=== PATIENT | female | born 1965 | race American Indian/Alaskan Native ===

== ENCOUNTER 2019-02-03 07:50 | Day surgery (SDC) | payer MEDICAID ==
[~2019-02-03 07:50] MED LIST: IOHEXOL 300 MG/ML 50ML IV ONE; LACTATED RINGERS 1,000 ML IV SCH; MIDAZOLAM 2 MG/2 ML INJ IV NR; WATER FOR IRRIG STERILE 2000 ML IR ONE
[2019-02-03] MEDS ORDERED: fentaNYL 100 MCG/2 ML INJ IV PRN (08:25)
[2019-02-03] MEDS ORDERED: ONDANSETRON 4 MG/2 ML INJ IV PRN (08:25)
--- NOTE | 2019-02-03 08:25 | Anesthesia Consultation ---
Anesthesia Consult and Med Hx Date of service: 02/03/19 - Airway Anesthetic Teeth Evaluation: Partials ROM Head & Neck: Adequate Mental/Hyoid Distance: Adequate Mallampati Class: Class II Intubation Access Assessment: Good - Pulmonary Exam CTA: Yes - Cardiac Exam Cardiac Exam: RRR - Pre-Operative Health Status ASA Pre-Surgery Classification: ASA3 Proposed Anesthetic Plan: General (DM, HTN, Obesity for GA) - Pulmonary Hx Smoking: Yes (STOPPED X 20 YRS) Hx Sleep Apnea: No (ANOOP PRE SCREEN HIGH RISK) - Cardiovascular System Hx Hypertension: Yes (X 10 YRS) - Hematic Hx Anemia: Yes (RECENT) - Other Systems Hx Cancer: No
--- NOTE | 2019-02-03 08:25 | Anesthesia Day of Surgery ---
Anesthesia Day of Surgery - Day of Surgery Patient Examined: Yes Patient H&P Reviewed: Yes Patient is NPO: Yes
[2019-02-03] MEDS ORDERED: fentaNYL 100 MCG/2 ML INJ ONE (09:20)
[2019-02-03] MEDS ORDERED: PROPOFOL 200 MG/20 ML VIAL IV ONE (09:20)
[2019-02-03] MEDS ORDERED: LIDOCAINE MPF (2%) 20 MG/1 ML VIAL 5 ML ONE (09:20)
[2019-02-03 10:00] VITALS: BP 139/77
== END 2019-02-03 07:51 | disposition home or self-care (01) ==
LOC: OR 07:50
PROVIDERS: ATTEND Urology
DX: N20.0 Calculus of kidney (principal); G43.909 Migraine, unspecified, not intractable, without status migrainosus; I10 Essential (primary) hypertension; D64.9 Anemia, unspecified; F32.9 Major depressive disorder, single episode, unspecified; Z53.8 Procedure and treatment not carried out for other reasons; Z91.040 Latex allergy status; Z88.5 Allergy status to narcotic agent; Z87.891 Personal history of nicotine dependence; Z79.899 Other long term (current) drug therapy; Z79.84 Long term (current) use of oral hypoglycemic drugs; Z87.440 Personal history of urinary (tract) infections
CPT/HCPCS: 82803; 82962; A4217; J2704; J3010

== ENCOUNTER 2019-02-23 15:38 | Inpatient (IN) | payer MEDICAID ==
[2019-02-23] MEDS ORDERED: ACETAMINOPHEN 325 MG TAB PO PRN (22:31)
[2019-02-23] MEDS ORDERED: ONDANSETRON 4 MG/2 ML INJ IV PRN (22:31)
[2019-02-23] MEDS ORDERED: DEXTROSE 50% IN WATER (25GM) 50 ML SYRINGE IV PRN (22:38)
[2019-02-23] MEDS ORDERED: INSULIN LISPRO 100 UNIT/ML SUB-Q SCH (23:15)
--- NOTE | 2019-02-23 23:16 | History and Physical Report ---
History of Present Illness Date of examination: 02/23/19 Date of admission: 02/23/19 22:31 Chief complaint: " My potassium is low" History of present illness: Patient is a 53 year old female with a past medical history of NIDDM, hypertension, Iron deficiency anemia and bilateral Kidney stones who presented to [facility] 02/23/2019 morning for pre op labs for scheduled surgery of shockwave lithotripsy and bilateral ureteroscopy. Patient states she received a call while at home that potassium was low and she needed to be admitted for further evaluation and management of hypokalemia. She is followed by ;urologist, Dr. Camara (at [facility]). She denies chills, fevers, n/v/chest pains or sob. Past History Past Medical History: other (As noted in HPI) Past Surgical History: Other (Lithotripsy) Social history: Family history: CAD, cancer, diabetes Medications and Allergies Allergies Allergy/AdvReac Type Severity Reaction Status Date / Time latex Allergy Rash , Verified 02/17/19 14:18 ITCHING morphine Allergy ELEVATED Verified 02/17/19 14:18 HEART RATE Home Medications Medication Instructions Recorded Confirmed Last Taken Type HYDROcodone/APAP 5-325 [[place] 1 each PO Q4HR PRN 11/29/18 02/23/19 Unknown History 5/325] Lisinopril/Hydrochlorothiazide 1 each PO DAILY 11/29/18 02/23/19 Unknown History [Zestoretic 10-12.5 mg Tablet] metFORMIN [Glucophage] 500 mg PO BID 11/29/18 02/23/19 Unknown History amLODIPine [Norvasc] 5 mg PO DAILY 02/17/19 02/23/19 Unknown History Potassium Chloride 20 meq PO 4XD 02/23/19 02/23/19 Unknown History Active Meds: Active Medications Acetaminophen (Tylenol) 650 mg PO Q4H PRN PRN Reason: Pain MILD(1-3)/Fever >100.5/ROGERS Dextrose (D50w (25gm) Syringe) 50 ml IV Q30MIN PRN; Protocol PRN Reason: Hypoglycemia Insulin Human Lispro (Humalog) 0 unit SUB-Q ACHS KEVIN; Protocol Ondansetron HCl (Zofran) 4 mg IV Q8H PRN PRN Reason: Nausea And Vomiting Sodium Chloride (Sodium Chloride Flush Syringe 10 Ml) 10 ml IV BID KEVIN Review of Systems All systems: negative Constitutional: no weakness, no malaise, no lethargy Ears, nose, mouth and throat: no mouth pain, no sore throat, no swelling in mouth Breasts: no pain, no skin changes, no Cardiovascular: high blood pressure, no chest pain, no shortness of breath Respiratory: no cough, no shortness of breath, no pain, no home oxygen Gastrointestinal: no nausea, no vomiting, no diarrhea Genitourinary Female: no abnormal vaginal bleeding, no vaginal dryness, no hot flashes Rectal: no hemorrhoids, no discharge Musculoskeletal: no muscle cramps, no atrophy, no limitation of motion Integumentary: no depigmentation, no brittle nails, no hirsutism Neurological: no head injury, no tingling, no aphasia, no change in mentation Psychiatric: no hopelessness, no difficulties concentrating Endocrine: high blood sugars Allergic/Immunologic: no anaphylaxis, no angioedema Exam - Physical Exam Narrative exam: General appearance: Present: pleasant woman, no acute distress - EENT Eyes: Present: PERRL ENT: hearing intact, clear oral mucosa - Neck Neck: Present: supple, normal ROM - Respiratory Respiratory effort: normal Respiratory: bilateral: CTA - Cardiovascular Heart Sounds: Present: S1 & S2. Absent: rub, click - Extremities Extremities: pulses symmetrical, No edema Peripheral Pulses: within normal limits - Abdominal General gastrointestinal: Present: soft, non-tender, non-distended, normal bowel sounds Female genitourinary: Present: normal - Integumentary Integumentary: Present: clear, warm, dry - Musculoskeletal Musculoskeletal: strength equal bilaterally - Psychiatric Psychiatric: appropriate mood/affect, intact judgment & insight - Neurologic Neurologic: CNII-XII intact, moves all extremities, - Constitutional Vitals: Temp Pulse Resp BP Pulse Ox 97.9 F 80 16 141/75 97 02/23/19 20:49 02/23/19 20:49 02/23/19 20:49 02/23/19 20:49 02/23/19 20:49 Results - Labs CBC & Chem 7: 02/24/19 00:11 02/24/19 16:18 Labs: Laboratory Last Values POC Glucose 415 (70-105) H 02/23/19 22:22 Assessment and Plan Assessment and plan: Hypokalemia -monitor labs -Replete K Nephrolithiasis -Scheduled surgery -Pain management if needed Hypertension -Resume home meds once reconciled -Monitor q shift -Type 2 diabetes mellitus; -Accu-Cheks -sliding scale coverage DVT prophylaxis -SCD Bilateral VTE prophylaxis?: Mechanical Reason for no VTE Prophylaxis: Surgical contraindication Plan of care discussed with patient/family: Yes
[2019-02-23] MEDS ORDERED: SODIUM CHLORIDE 0.9% 500 ML 500 ML IV ONE (23:19)
[2019-02-23 23:32] LABS: BUN/Creatinine Ratio 18; Blood Urea Nitrogen 18 mg/dL (7-17); Hemolysis Index 3
[2019-02-24] MEDS ORDERED: INSULIN LISPRO 100 UNIT/ML SUB-Q ONE (00:11)
[2019-02-24 00:22] LABS: Basophils % (Auto) 0.5 % (0.0-1.8); Eosinophils # (Auto) 0.1 K/mm3 (0.0-0.4); Eosinophils % (Auto) 1.4 % (0.0-4.3); Hematocrit 34.6 % (30.3-42.9); Hemoglobin 11.2 gm/dl (10.1-14.3); Lymphocytes # (Auto) 1.1 K/mm3 (1.2-5.4); Lymphocytes % (Auto) 21.8 % (13.4-35.0); Mean Corpuscular HGB Conc 32 % (30-34); Mean Corpuscular Volume 75 fl (79-97); Monocytes # (Auto) 0.5 K/mm3 (0.0-0.8); Monocytes % (Auto) 9.4 % (0.0-7.3); Platelet Count 328 K/mm3 (140-440); Red Cell Distribution Width 14.4 % (13.2-15.2)
[2019-02-24] MEDS ORDERED: POTASSIUM CHLORIDE ER 20 MEQ TAB PO ONE ×2 (00:27→19:07)
[2019-02-24] MEDS: POTASSIUM CHLORIDE 10 MEQ 10 MEQ/100 ML BAG IV SCH ×7 (00:37→21:23)
[2019-02-24 00:40] LABS: INR 1.04 (0.87-1.13); Partial Thromboplastin Time 31.2 Sec. (24.2-36.6)
[2019-02-24] MEDS: SODIUM CHLORIDE 0.9% 1000 ML 1,000 ML IV SCH ×2 (00:50→13:15)
[2019-02-24] MEDS: INSULIN LISPRO 100 UNIT/ML SUB-Q SCH ×2 (06:07→12:32)
[2019-02-24 08:34] LABS: BUN/Creatinine Ratio 18; Blood Urea Nitrogen 14 mg/dL (7-17); Calcium 9.6 mg/dL (8.4-10.2); Hemolysis Index 68
--- NOTE | 2019-02-24 11:46 | XRay Report ---
ABDOMEN 1 VIEW(S) INDICATION / CLINICAL INFORMATION: pre surg. COMPARISON: None available. FINDINGS: TUBES / LINES: Bilateral ureteral stents are in position. BOWEL GAS PATTERN: No significant abnormality. FREE AIR / EXTRALUMINAL GAS: None seen. ADDITIONAL FINDINGS: An approximate 1.1 cm calcification overlies the inferior pole of the left kidne y consistent with a renal stone. No other pathologic calcifications are detected on x-ray. IMPRESSION: Left nephrolithiasis. Signer Name: Jez Chacko Jr, MD Signed: 02/24/2019 11:42 AM Workstation Name: [id number]
--- NOTE | 2019-02-24 13:08 | Anesthesia Consultation ---
Anesthesia Consult and Med Hx Date of service: 02/24/19 - Airway Anesthetic Teeth Evaluation: Dentures (upper) ROM Head & Neck: Adequate Mental/Hyoid Distance: Adequate Mallampati Class: Class III Intubation Access Assessment: Possibly Difficult - Pulmonary Exam CTA: Yes - Cardiac Exam Cardiac Exam: RRR - Pre-Operative Health Status ASA Pre-Surgery Classification: ASA3 Proposed Anesthetic Plan: General - Pulmonary Hx Smoking: Yes (STOPPED X 20 YRS) Hx Respiratory Symptoms: No Hx Sleep Apnea: No (ANOOP PRE SCREEN HIGH RISK) - Cardiovascular System Hx Hypertension: Yes Hx Heart Attack/AMI: No - Central Nervous System CVA: No - Gastrointestinal Hx Gastroesophageal Reflux Disease: No - Endocrine Hx Renal Disease: No Hx Liver Disease: No Hx Non-Insulin Dependent Diabetes: Yes (hyperglycemic this admission) Hx Thyroid Disease: No - Hematic Hx Anemia: Yes - Other Systems Hx Obesity: Yes (BMI 41) - Additional Comments Anesthesia Medical History Comments: No hx anesthetic complications. Currently admitted for hypokalemia evaluation. Received K supplementation overnight.
--- NOTE | 2019-02-24 13:08 | Anesthesia Day of Surgery ---
Anesthesia Day of Surgery - Day of Surgery Patient Examined: Yes Patient H&P Reviewed: Yes Patient is NPO: Yes
[2019-02-24] MEDS ORDERED: fentaNYL 100 MCG/2 ML INJ IV PRN (13:30)
[2019-02-24] MEDS ORDERED: INSULIN REGULAR, HUMAN 100 UNITS/1 ML SUB-Q SCH (13:30)
[2019-02-24] MEDS ORDERED: cefTRIAXone/NS 1 GM/50 ML 1 GM/50 ML BAG IV NR (13:30)
[2019-02-24] MEDS ORDERED: HYDROmorphone 1 MG/1 ML INJ ONE (13:48)
[2019-02-24] MEDS ORDERED: PROPOFOL 200 MG/20 ML VIAL IV ONE (13:48)
[2019-02-24] MEDS ORDERED: LIDOCAINE MPF (2%) 20 MG/1 ML VIAL 5 ML ONE (13:48)
[2019-02-24] MEDS ORDERED: ONDANSETRON 4 MG/2 ML INJ ONE (15:42)
--- NOTE | 2019-02-24 15:54 | Post Operative Note ---
Date of procedure: 02/24/19 Pre-op diagnosis: stones retained stent Post-op diagnosis: same Findings: severe calcifies stent stones Procedure: cysto ureteroscopy laser Anesthesia: GETA Surgeon: KRYSTYNA KAUR Estimated blood loss: minimal Pathology: none Condition: stable Disposition: PACU
[2019-02-24] MEDS ORDERED: WATER FOR IRRIG STERILE 2000 ML IR ONE (15:57)
[2019-02-24] MEDS ORDERED: oxyCODONE /ACETAMINOPHEN 5-325MG TAB PO PRN (15:59)
[2019-02-24] MEDS ORDERED: ZOLPIDEM 5 MG TAB PO PRN (15:59)
[2019-02-24] MEDS ORDERED: LACTATED RINGERS 1,000 ML IV SCH (16:00)
[2019-02-24 16:45] LABS: Alanine Aminotransferase 16 units/L (7-56); Albumin 3.6 g/dL (3.9-5); BUN/Creatinine Ratio 15; Blood Urea Nitrogen 12 mg/dL (7-17); Hemolysis Index 6
--- NOTE | 2019-02-24 17:07 | Fluoroscopy Report ---
7 fluoroscopic images submitted Indication: Intraoperative localization Impression: 7 images of the abdomen were submitted for documentation purposes with radiology involve ment. Right-sided retrograde pyelogram was performed with right-sided stent removal and opened and t he catheter placement. 8 mL of Omnipaque 300 was utilized for this exam. Please refer to the operativ e note for complete details. Fluoroscopic time: 3 minutes Signer Name: Allan Escobar MD Signed: 02/24/2019 5:02 PM Workstation Name: [id number]
--- NOTE | 2019-02-24 17:47 | Post Anesthesia Evaluation ---
- Post Anesthesia Evaluation Patient Participated: Yes Airway Patent: Yes Stable Respiratory Function: Yes Nausea/Vomiting: No Temp > 96.8F: Yes Pain Manageable: Yes Adequeate Hydration: Yes Anesthesia Complications: No Other Comments: Post op chem showed hypokalemia. IV potassium started prior to transfer back to floor.
[2019-02-24] MEDS ORDERED: MAGNESIUM SULFATE 1 GM in SODIUM CHLORIDE 0.9% 50 ML IV ONE (19:07)
--- NOTE | 2019-02-24 19:10 | Progress Note ---
Assessment and Plan Assessment and plan: Patient is a 53 year old female with a past medical history of NIDDM, hypertension, Iron deficiency anemia and bilateral Kidney stones who presented to [facility] 02/23/2019 morning for pre op labs for scheduled surgery of shockwave lithotripsy and bilateral ureteroscopy. Patient states she received a call whil e at home that potassium was low and she needed to be admitted for further evaluation and management of hypokalemia. She is followed by ;urologist, Dr. Camara (at [facility]). She denies chills, fevers, n/v/chest pains or sob. Nephrolithasis severe calcifies stent stones s/p cysto ureteroscopy laser Persistence Hypokalemia -monitor labs -Check Magnesium -?RTA, may need outpatient Nephrology follow up -Replete K hypertension -Resume home meds once reconciled -Monitor q shift -Type 2 diabetes mellitus; -Accu-Cheks -sliding scale coverage DVT prophylaxis -SCD Bilateral Plan discussed with the patient History Interval history: Patient seen and examined, cystoscope today Hospitalist Physical - Physical exam Narrative exam: General appearance: Present: pleasant woman, no acute distress, lying comfortably - EENT Eyes: Present: PERRL ENT: hearing intact, clear oral mucosa - Neck Neck: Present: supple, normal ROM - Respiratory Respiratory effort: normal Respiratory: bilateral: CTA - Cardiovascular Heart Sounds: Present: S1 & S2. Absent: rub, click - Extremities Extremities: pulses symmetrical, No edema Peripheral Pulses: within normal limits - Abdominal General gastrointestinal: Present: soft, non-tender, non-distended, normal bowel sounds Christianson in place - Integumentary Integumentary: Present: clear, warm, dry, drains in place, - Musculoskeletal Musculoskeletal: strength equal bilaterally - Psychiatric Psychiatric: appropriate mood/affect, intact judgment & insight - Neurologic Neurologic: CNII-XII intact, moves all extremities, - Constitutional Vitals: Temp Pulse Resp BP Pulse Ox 97.3 F L 69 19 146/87 96 02/24/19 16:50 02/24/19 17:20 02/24/19 17:20 02/24/19 17:20 02/24/19 17:20 Results - Labs CBC & Chem 7: 02/24/19 00:11 02/24/19 16:18 Labs: Laboratory Last Values WBC 5.2 K/mm3 (4.5-11.0) 02/24/19 00:11 RBC 4.60 M/mm3 (3.65-5.03) 02/24/19 00:11 Hgb 11.2 gm/dl (10.1-14.3) 02/24/19 00:11 Hct 34.6 % (30.3-42.9) 02/24/19 00:11 MCV 75 fl (79-97) L 02/24/19 00:11 MCH 24 pg (28-32) L 02/24/19 00:11 MCHC 32 % (30-34) 02/24/19 00:11 RDW 14.4 % (13.2-15.2) 02/24/19 00:11 Plt Count 328 K/mm3 (140-440) 02/24/19 00:11 Lymph % (Auto) 21.8 % (13.4-35.0) 02/24/19 00:11 [place] % (Auto) 9.4 % (0.0-7.3) H 02/24/19 00:11 Eos % (Auto) 1.4 % (0.0-4.3) 02/24/19 00:11 Baso % (Auto) 0.5 % (0.0-1.8) 02/24/19 00:11 Lymph # 1.1 K/mm3 (1.2-5.4) L 02/24/19 00:11 [place] # 0.5 K/mm3 (0.0-0.8) 02/24/19 00:11 Eos # 0.1 K/mm3 (0.0-0.4) 02/24/19 00:11 Baso # 0.0 K/mm3 (0.0-0.1) 02/24/19 00:11 Seg Neutrophils % 66.9 % (40.0-70.0) 02/24/19 00:11 Seg Neutrophils # 3.5 K/mm3 (1.8-7.7) 02/24/19 00:11 PT 13.7 Sec. (12.2-14.9) 02/24/19 00:11 INR 1.04 (0.87-1.13) 02/24/19 00:11 APTT 31.2 Sec. (24.2-36.6) 02/24/19 00:11 Sodium 144 mmol/L (137-145) 02/24/19 16:18 Potassium 2.8 mmol/L (3.6-5.0) L* 02/24/19 16:18 Chloride 106.1 mmol/L (98-107) 02/24/19 16:18 Carbon Dioxide 22 mmol/L (22-30) 02/24/19 16:18 Anion Gap 19 mmol/L 02/24/19 16:18 BUN 12 mg/dL (7-17) 02/24/19 16:18 Creatinine 0.8 mg/dL (0.7-1.2) 02/24/19 16:18 Estimated GFR > 60 ml/min 02/24/19 16:18 BUN/Creatinine Ratio 15 % 02/24/19 16:18 Glucose 185 mg/dL (65-100) H 02/24/19 16:18 POC Glucose 204 (70-105) H 02/24/19 14:01 Calcium 9.0 mg/dL (8.4-10.2) 02/24/19 16:18 Magnesium 1.70 mg/dL (1.7-2.3) 02/24/19 00:11 Total Bilirubin 0.50 mg/dL (0.1-1.2) 02/24/19 16:18 AST 18 units/L (5-40) 02/24/19 16:18 ALT 16 units/L (7-56) 02/24/19 16:18 Alkaline Phosphatase 65 units/L (35-129) 02/24/19 16:18 Total Protein 7.2 g/dL (6.3-8.2) 02/24/19 16:18 Albumin 3.6 g/dL (3.9-5) L 02/24/19 16:18 Albumin/Globulin Ratio 1.0 % 02/24/19 16:18 Active Medications - Current Medications Current Medications: Generic Name Dose Route Start Last Admin Trade Name Freq PRN Reason Stop Dose Admin Acetaminophen 650 mg 02/23/19 22:31 Tylenol PO Q4H PRN Pain MILD(1-3)/Fever >100.5/ROGERS Dextrose 50 ml 02/23/19 22:38 D50w (25gm) Syringe IV Q30MIN PRN Hypoglycemia Protocol Sodium Chloride 1,000 mls @ 125 mls/hr 02/23/19 23:30 02/24/19 13:15 Nacl 0.9% 1000 Ml IV 125 mls/hr DIRECT KEVIN Administration Cefazolin Sodium 1 gm in 50 mls @ 100 mls/hr 02/24/19 20:00 Ancef/Ns 1 Gm/50 Ml IV 02/25/19 01:59 TID NR Protocol Lactated Ringer's 1,000 mls @ 100 mls/hr 02/24/19 16:00 Lactated Ringers IV DIRECT KEVIN Potassium Chloride 10 meq in 100 mls @ 100 mls/hr 02/24/19 18:00 02/24/19 18:50 Kcl 10meq/100ml IV 02/24/19 21:59 100 mls/hr Q1H KEVIN Administration Magnesium Sulfate 1 gm/ Sodium 52 mls @ 52 mls/hr 02/24/19 19:07 Chloride IV 02/24/19 20:06 ONCE ONE Insulin Human Lispro 0 unit 02/24/19 06:00 02/24/19 12:32 Humalog SUB-Q Not Given Q6HR [facility] Protocol Ondansetron HCl 4 mg 02/23/19 22:31 Zofran IV Q8H PRN Nausea And Vomiting Oxycodone/Acetaminophen 1 tab 02/24/19 15:59 Percocet 5/325 PO Q6H PRN Pain, Moderate (4-6) Potassium Chloride 40 meq 02/24/19 19:07 K-Dur PO 02/24/19 19:08 ONCE ONE Sodium Chloride 10 ml 02/23/19 23:00 02/24/19 10:49 Sodium Chloride Flush Syringe 10 Ml IV Not Given BID KEVIN Zolpidem Tartrate 5 mg 02/24/19 15:59 Ambien PO QHS PRN Sleep
[2019-02-24] MEDS ORDERED: ceFAZolin/NS 1 GM/50 ML 1 GM/50 ML BAG IV NR (20:00)
[2019-02-25] MEDS: POTASSIUM CHLORIDE 10 MEQ 10 MEQ/100 ML BAG IV SCH ×4 (00:18→13:40)
[2019-02-25] MEDS: INSULIN LISPRO 100 UNIT/ML SUB-Q SCH ×3 (00:27→12:30)
[2019-02-25 06:59] LABS: BUN/Creatinine Ratio 18; Blood Urea Nitrogen 14 mg/dL (7-17); Calcium 9.4 mg/dL (8.4-10.2); Hemolysis Index 35
--- NOTE | 2019-02-25 08:39 | Progress Note ---
Subjective Date of service: 02/25/19 Interval history: post op severe calcifies stent stones Procedure: cysto ureteroscopy laser 02-24-19 Surgeon: KRYSTYNA KAUR nurse at bedside cohen & ureteral catheter draining well informed pt with have bladder spasm, urine leakage (had signifcant swelling & stones internally) home with cohen & ureteral catheter consult visiting nurse f/u [address] Camara to remove catheters Objective - Constitutional Vitals: Vital Signs - 12hr 02/24/19 02/25/19 02/25/19 21:24 00:17 04:26 Temperature 98.2 F 98.6 F Pulse Rate 78 76 Respiratory 18 16 16 Rate Blood Pressure 131/68 143/77 O2 Sat by Pulse 95 96 Oximetry 02/25/19 07:31 Temperature 98.4 F Pulse Rate 75 Respiratory 18 Rate Blood Pressure 149/74 O2 Sat by Pulse 93 Oximetry - Labs CBC & Chem 7: 02/24/19 00:11 02/25/19 06:07 Labs: Abnormal lab results 02/24/19 02/24/19 02/24/19 Range/Units 12:06 13:03 14:01 Potassium (3.6-5.0) mmol/L Carbon Dioxide (22-30) mmol/L Glucose (65-100) mg/dL POC Glucose 221 H 237 H 204 H (70-105) Albumin (3.9-5) g/dL 02/24/19 02/24/19 02/25/19 Range/Units 16:10 16:18 00:25 Potassium 2.8 L* (3.6-5.0) mmol/L Carbon Dioxide (22-30) mmol/L Glucose 185 H (65-100) mg/dL POC Glucose 179 H 317 H (70-105) Albumin 3.6 L (3.9-5) g/dL 02/25/19 02/25/19 Range/Units 06:07 07:02 Potassium 3.3 L (3.6-5.0) mmol/L Carbon Dioxide 20 L (22-30) mmol/L Glucose 256 H (65-100) mg/dL POC Glucose 242 H (70-105) Albumin (3.9-5) g/dL Medications & Allergies - Medications Allergies/Adverse Reactions: Allergies latex Allergy (Verified 02/17/19 14:18) Rash , ITCHING morphine Allergy (Verified 02/17/19 14:18) ELEVATED HEART RATE Home Medications: Home Medications Medication Instructions Recorded Confirmed Last Taken Type HYDROcodone/APAP 5-325 [[place] 1 each PO Q4HR PRN 11/29/18 02/23/19 Unknown History 5/325] Lisinopril/Hydrochlorothiazide 1 each PO DAILY 11/29/18 02/23/19 Unknown History [Zestoretic 10-12.5 mg Tablet] metFORMIN [Glucophage] 500 mg PO BID 11/29/18 02/23/19 Unknown History amLODIPine [Norvasc] 5 mg PO DAILY 02/17/19 02/23/19 Unknown History Potassium Chloride 20 meq PO 4XD 02/23/19 02/23/19 Unknown History Active Medications: Generic Name Dose Route Start Last Admin Trade Name Freq PRN Reason Stop Dose Admin Acetaminophen 650 mg 02/23/19 22:31 Tylenol PO Q4H PRN Pain MILD(1-3)/Fever >100.5/ROGERS Dextrose 50 ml 02/23/19 22:38 D50w (25gm) Syringe IV Q30MIN PRN Hypoglycemia Protocol Sodium Chloride 1,000 mls @ 125 mls/hr 02/23/19 23:30 02/24/19 13:15 Nacl 0.9% 1000 Ml IV 125 mls/hr DIRECT KEVIN Administration Lactated Ringer's 1,000 mls @ 100 mls/hr 02/24/19 16:00 02/25/19 00:27 Lactated Ringers IV 100 mls/hr DIRECT KEVIN Administration Insulin Human Lispro 0 unit 02/24/19 06:00 02/25/19 07:09 Humalog SUB-Q 3 unit Q6HR KEVIN Administration Protocol Ondansetron HCl 4 mg 02/23/19 22:31 Zofran IV Q8H PRN Nausea And Vomiting Oxycodone/Acetaminophen 1 tab 02/24/19 15:59 02/24/19 21:24 Percocet 5/325 PO 1 tab Q6H PRN Administration Pain, Moderate (4-6) Sodium Chloride 10 ml 02/23/19 23:00 02/24/19 21:24 Sodium Chloride Flush Syringe 10 Ml IV 10 ml BID KEVIN Administration Zolpidem Tartrate 5 mg 02/24/19 15:59 Ambien PO QHS PRN Sleep
[2019-02-25] MEDS ORDERED: MAGNESIUM SULFATE 1 GM in SODIUM CHLORIDE 0.9% 50 ML IV ONE (10:00)
[2019-02-25 11:40] VITALS: BP 140/68
--- NOTE | 2019-02-25 14:55 | Discharge Summary ---
Providers - Providers Date of Admission: 02/23/19 22:31 Attending physician: LISSETT BROWNE MD Primary care physician: [employer]ICAL [employer]OR Hospitalization Condition: Stable Hospital course: Patient is a 53 year old female with a past medical history of NIDDM, hypertension, Iron deficiency anemia and bilateral Kidney stones who presented to [facility] 02/23/2019 morning for pre op labs for scheduled surgery of shockwave lithotripsy and bilateral ureteroscopy. Patient states she received a call while at home that potassium was low and she needed to be admitted for further evaluation and management of hypokalemia. She is followed by ;urologist, Dr. Camara (at [facility]). She denies chills, fevers, n/v/chest pains or sob. Nephrolithasis severe calcifies stent stones s/p cysto ureteroscopy laser Persistence Hypokalemia -monitor labs -Check Magnesium -?RTA, may need outpatient Nephrology follow up -Replete K Hypertension -Resume home meds once reconciled -Monitor q shift -Type 2 diabetes mellitus; -Accu-Cheks -sliding scale coverage Disposition: [id number]/[place]-06 HOME UNDER HOME [facility] Time spent for discharge: 35 mins Core Measure Documentation - Palliative Care Palliative Care/ Comfort Measures: Not Applicable - Core Measures Any of the following diagnoses?: none Exam - Physical Exam Narrative exam: General appearance: Present: pleasant woman, no acute distress, lying comfortably - EENT Eyes: Present: PERRL ENT: hearing intact, clear oral mucosa - Neck Neck: Present: supple, normal ROM - Respiratory Respiratory effort: normal Respiratory: bilateral: CTA - Cardiovascular Heart Sounds: Present: S1 & S2. Absent: rub, click - Extremities Extremities: pulses symmetrical, No edema Peripheral Pulses: within normal limits - Abdominal General gastrointestinal: Present: soft, non-tender, non-distended, normal bowel sounds Christianson in place - Integumentary Integumentary: Present: clear, warm, dry, drains in place, - Musculoskeletal Musculoskeletal: strength equal bilaterally - Psychiatric Psychiatric: appropriate mood/affect, intact judgment & insight - Neurologic Neurologic: CNII-XII intact, moves all extremities, - Constitutional Vitals: Temp Pulse Resp BP Pulse Ox 98.3 F 81 18 140/68 95 02/25/19 11:27 02/25/19 11:27 02/25/19 11:27 02/25/19 11:27 02/25/19 11:27 Plan Activity: advance as tolerated Diet: diabetic Special Instructions: record daily weights, record daily BP diary, record blood sugar diary Follow up with: PRIMARY CARE, [Primary Care Provider] - 7 Days DEANN CAMARA MD [Staff Physician] - 7 Days Prescriptions: oxyCODONE /ACETAMINOPHEN [Percocet 5/325 mg] 1 tab PO Q6H PRN #14 tablet PRN Reason: Pain, Moderate (4-6)
[2019-02-25] MEDS ORDERED: POTASSIUM CHLORIDE ER 20 MEQ TAB PO ONE ×2 (15:12→17:00)
== END 2019-02-25 17:10 | disposition home health service (06) | DRG 669 ==
LOC: UNDOADMOB 15:38 → 3A 15:38 → 3B-SURG 20:20 → OBSVTOIN 22:31
PROVIDERS: ADMIT Internal Medicine Geriatric Medicine; ATTEND Internal Medicine
PROC: 0TC68ZZ Extirpation of Matter from Right Ureter, Via Natural or Artificial Opening Endoscopic (ICD-10-PCS; principal; 2019-02-24)
PROC: 0TP98DZ Removal of Intraluminal Device from Ureter, Via Natural or Artificial Opening Endoscopic (ICD-10-PCS; 2019-02-24)
PROC: BT161ZZ Fluoroscopy of Right Ureter using Low Osmolar Contrast (ICD-10-PCS; 2019-02-24)
DX: N20.0 Calculus of kidney (principal); Z68.41 Body mass index [BMI] 40.0-44.9, adult; E87.6 Hypokalemia; E11.9 Type 2 diabetes mellitus without complications; E66.9 Obesity, unspecified; I10 Essential (primary) hypertension; Z79.84 Long term (current) use of oral hypoglycemic drugs
CPT/HCPCS: 36415; 74018; 74420; 80048; 80053; 82962; 83735; 85025; 85610; 85730; G0378; A4217; C1726; C1758; C1769; G0379; J0690; J0696; J1170; J1815; J2405; J2704; J3475; J3480; J7030; J7040; J7120; Q9967

== ENCOUNTER 2019-03-24 08:10 | Day surgery (SDC) | payer MEDICAID ==
[2019-03-17 15:11] LABS: BUN/Creatinine Ratio 23; Blood Urea Nitrogen 18 mg/dL (7-17); Calcium 10.7 mg/dL (8.4-10.2); Hemolysis Index 5
[2019-03-23 16:17] LABS: BUN/Creatinine Ratio 26; Blood Urea Nitrogen 18 mg/dL (7-17); Calcium 10.5 mg/dL (8.4-10.2); Hemolysis Index 19
[~2019-03-24 08:10] MED LIST changes: -MIDAZOLAM 2 MG/2 ML INJ IV NR; +ceFAZolin/STERILE WATER 2 GM/20 ML SYRINGE IV NR
--- NOTE | 2019-03-24 08:20 | Anesthesia Day of Surgery ---
Anesthesia Day of Surgery - Day of Surgery Patient Examined: Yes Patient H&P Reviewed: Yes Patient is NPO: Yes
[2019-03-24] MEDS ORDERED: LIDOCAINE MPF (2%) 20 MG/1 ML VIAL 5 ML ONE (08:23)
[2019-03-24] MEDS ORDERED: PROPOFOL 200 MG/20 ML VIAL IV ONE (08:24)
[2019-03-24] MEDS ORDERED: fentaNYL 100 MCG/2 ML INJ ONE (08:24)
--- NOTE | 2019-03-24 08:24 | Anesthesia Consultation ---
Anesthesia Consult and Med Hx Date of service: 03/24/19 - Airway Anesthetic Teeth Evaluation: Partials ROM Head & Neck: Adequate Mental/Hyoid Distance: Adequate Mallampati Class: Class II Intubation Access Assessment: Good - Pre-Operative Health Status ASA Pre-Surgery Classification: ASA2 Proposed Anesthetic Plan: General - Pulmonary Hx Smoking: Yes (STOPPED X 20 YRS) Hx Respiratory Symptoms: No Hx Sleep Apnea: No (ANOOP PRE SCREEN HIGH RISK) - Cardiovascular System Hx Hypertension: Yes (X 10 YRS) Hx Heart Attack/AMI: No - Central Nervous System CVA: No Hx Psychiatric Problems: Yes (Depression-no meds) - Gastrointestinal Hx Gastroesophageal Reflux Disease: No - Endocrine Hx Renal Disease: No Hx Liver Disease: No Hx Non-Insulin Dependent Diabetes: Yes Hx Thyroid Disease: No - Hematic Hx Anemia: Yes - Other Systems Hx Cancer: No Hx Obesity: Yes (BMI 41) - Additional Comments Anesthesia Medical History Comments: Here [id number]
[2019-03-24] MEDS ORDERED: ONDANSETRON 4 MG/2 ML INJ IV PRN (09:00)
[2019-03-24] MEDS ORDERED: HYDROmorphone 1 MG/1 ML INJ ONE (10:28)
[2019-03-24] MEDS ORDERED: WATER FOR IRRIG STERILE 2000 ML IR ONE (10:55)
[2019-03-24] MEDS ORDERED: ONDANSETRON 4 MG/2 ML INJ ONE (11:05)
[2019-03-24] MEDS ORDERED: IOHEXOL 300 MG/ML 50ML IV ONE ×2 (11:55)
--- NOTE | 2019-03-24 12:35 | Short Stay Summary ---
Short Stay Documentation Date of service: 03/24/19 - History H&P: obtained from office - Allergies and Medications Current Medications: Allergies latex Allergy (Verified 02/17/19 14:18) Rash , ITCHING morphine Allergy (Verified 02/17/19 14:18) ELEVATED HEART RATE Home Medications Medication Instructions Recorded Confirmed Last Taken Type HYDROcodone/APAP 5-325 [[place] 1 each PO Q4HR PRN 11/29/18 03/11/19 Unknown History 5-325 mg TAB] Lisinopril/Hydrochlorothiazide 1 each PO DAILY 11/29/18 03/24/19 03/23/19 11:30 History [Zestoretic 10-12.5 mg Tablet] metFORMIN [Glucophage] 500 mg PO BID 11/29/18 03/24/19 03/23/19 12:00 History amLODIPine 5 mg PO DAILY 02/17/19 03/24/19 03/23/19 11:00 History Potassium Chloride 20 meq PO DAILY 02/23/19 03/24/19 03/23/19 11:00 History Active Medications Cefazolin Sodium (Ancef/Sterile Water 2 Gm/20 Ml) 2 gm IV PREOP NR Stop: 03/24/19 16:00 Fentanyl (Sublimaze) 50 mcg IV Q5MIN PRN PRN Reason: Pain , Severe (7-10) Stop: 03/24/19 19:00 Lactated Ringer's (Lactated Ringers) 1,000 mls @ 100 mls/hr IV DIRECT KEVIN Last Admin: 03/24/19 08:50 Dose: 100 mls/hr Documented by: Ondansetron HCl (Zofran) 4 mg IV ONCE PRN PRN Reason: Nausea And Vomiting Stop: 03/24/19 16:00 - Brief post op/procedure progress note Date of procedure: 03/24/19 Pre-op diagnosis: Left retained stent stones Post-op diagnosis: same Procedure: Left renal eswl, left urs, laser, stent change from 7x26 to 7x24 Anesthesia: GETA Findings: sever encrustation, comlplex, Surgeon: DEANN TAYLOR Estimated blood loss: minimal Pathology: none Condition: stable - Hospital course Hospital course: or pacu home - Disposition Condition at discharge: Good Disposition: DC-01 TO HOME OR SELFCARE Short Stay Discharge Plan Activity: advance as tolerated Diet: advance as tolerated Follow up with: DEANN TAYLOR MD [Staff Physician] - 7 Days
[2019-03-24] MEDS ORDERED: INSULIN LISPRO 100 UNIT/ML SUB-Q ONE (12:52)
--- NOTE | 2019-03-24 12:55 | Fluoroscopy Report ---
INTRAOPERATIVE FLUOROSCOPY: RETROGRADE UROGRAPHY INDICATION: History of left ureteral stone. Guidance for stone fragmentation/retrieval and stent exchange. TECHNIQUE: Intraoperative spot images were obtained during the procedure. FINDINGS: A left lower renal pole stone measures 1 cm. Retrograde urography demonstrates expected opacification of the left renal collecting system. A subsequently placed ureteral stent is in good position. Pleas e see the procedure report for further details. Fluoroscopy Time: 4.6 minutes. Fluoroscopy Images: 9. Signer Name: Jeff Min MD Signed: 03/24/2019 12:50 PM Workstation Name: [id number]
[2019-03-24] MEDS: fentaNYL 100 MCG/2 ML INJ IV PRN ×2 (13:16→13:25)
[2019-03-24 15:08] VITALS: BP 127/68
--- NOTE | 2019-03-27 12:41 | Operative Report ---
UROLOGY OPERATIVE NOTE PREOPERATIVE DIAGNOSES: Bilateral hydro, bilateral renal stones, left retained stent, left renal stones. POSTOPERATIVE DIAGNOSES: Bilateral hydro, bilateral renal stones, left retained stent, left renal stones. PROCEDURES: 1. Left renal ESWL. 2. Left ureteroscopy, holmium laser fragmentation of stone; complicated due to encrustation, see op note; stent replacement, staged for future removal. SURGEON: Alex Camara MD ANESTHESIA: General. SPECIMENS: None. ESTIMATED BLOOD LOSS: Minimal. COMPLICATIONS: None. FINDINGS: Severe encrustation even after ESWL. Approximately 3 to 4 cm of the stent, proximal J was in the upper pole, but the portion of the stent was totally encrusted. This was not visible on fluoroscopy, but large encrustation, a block of stone around the stent. CLINICAL INDICATIONS: Counseled RCBA, antibiotics, SCDs, some combination of the patient's problems scheduling, noncompliance and other issues. 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 The patient had been counseled many times in the past, evaluation and treatment by [facility]. Additionally with difficulties coordinating due to multiple issues including her problems with being scheduled at different hospitals, compliance with other medical issues causing patient cancellations and other issues including ____. DESCRIPTION OF PROCEDURE: The patient was transferred to the OR lithotripsy suite, placed in the supine position. Biplanar fluoroscopy was used to target the proximal J within F2. A total of 2500 shocks, maximum 7 kilovolts, was done with intermittent repositioning done as necessary. This was done in our standard fashion. Due to her history of easy encrustation, we began around the circular J, went circumferentially around the proximal end of the stent. Of note, under fluoroscopy no clear stones were identified, but given her past history of severe encrustation and similar non-visibility of stones, expected. At this point, the patient was transported to the cystoscopy suite due to likely complexity of the procedure. Cystoscopy suite was prepped and draped in the standard fashion. A 22-Bel[place]an scope was passed. Glidewire was passed adjacent to the stent, up to the left renal pelvis. Stent was grasped, attempted to pull this. The proximal stent would not pull down. At this point, a second wire was placed. A rigid ureteroscope was passed to the stent; of course, this was tough, tedious and difficult as expected. This was passed along the stent with intermittently manipulating the stent to keep it pushing up the ureter from the distal end. Next, we visualized the stent. Of note, the proximal J was in the upper pole and a significant amount of the stent was in the kidney, and this portion was completely encrusted all the way circumferentially with stone. The Holmium laser fiber was passed. We began tedious and slow fragmentation of the stone around the stent. This was done sequentially from the more distal aspect circumferentially to the proximal aspect, then circumferentially around the proximal J to allow this to uncurl. Of course, this was tedious because the previous historical instruments were not available, which would make this procedure easier. Laser was required, and it was tedious to prevent damage and breakage of the stent. At this point, the scope was slowly withdrawn, the stent was pulled out simultaneously. Next, due to the amount of trauma, wire was backloaded on the cystoscope. A 7 x 24 double-J stent was passed over the wire under direct and fluoroscopic visualization. When the wire and string was removed, nice proximal J, nice distal J within the bladder. Bladder was drained. The patient was awakened, transferred to the PACU in good and stable condition. JOB# [id number] ATS/NTS
== END 2019-03-24 08:11 | disposition home or self-care (01) ==
LOC: OR 08:10
PROVIDERS: ATTEND Urology
DX: N20.0 Calculus of kidney (principal); I10 Essential (primary) hypertension; F32.9 Major depressive disorder, single episode, unspecified; E66.9 Obesity, unspecified; K21.9 Gastro-esophageal reflux disease without esophagitis; D64.9 Anemia, unspecified; Z71.3 Dietary counseling and surveillance; Z87.891 Personal history of nicotine dependence; Z68.41 Body mass index [BMI] 40.0-44.9, adult; Z91.040 Latex allergy status; Z88.6 Allergy status to analgesic agent; Z79.84 Long term (current) use of oral hypoglycemic drugs; Z79.899 Other long term (current) drug therapy; Z87.440 Personal history of urinary (tract) infections; Z98.890 Other specified postprocedural states
CPT/HCPCS: 36415; 50590; 52356; 74420; 80048; 82962; A4217; C1726; C1758; C1769; C2617; J0690; J1170; J2405; J2704; J3010; J7120; Q9967; J1815

== ENCOUNTER 2019-05-09 08:57 | Outpatient (CLI) | payer MEDICAID ==
--- NOTE | 2019-05-09 10:02 | Ultrasound Report ---
ULTRASOUND RENAL INDICATION / CLINICAL INFORMATION: N20.0Calculus of kidney/N13.30Unspecified hydronephrosis. COMPARISON: 02/01/2018 renal ultrasound FINDINGS: RIGHT KIDNEY: Length = 12.8 cm. [normal > 9 cm] - Parenchymal Thickness = 1.4 cm. [normal > 1.5 cm] - Echogenicity: Normal. - Hydronephrosis: Mild to moderate right hydronephrosis is identified - Cyst or mass: No significant abnormality. - Stones: A few shadowing calyceal stones are identified in the right kidney but this appears decreas ed by approximately 50% since the previous exam. LEFT KIDNEY: Length = 11.9 cm. [normal > 9 cm] - Parenchymal Thickness = 2.1 cm. [normal > 1.5 cm] - Echogenicity: Normal. - Hydronephrosis: Mild left hydronephrosis is identified - Cyst or mass: No significant abnormality. - Stones: A few shadowing calyceal stones are identified in the left kidney but this appears decrease d by approximately 50% since the previous exam. URINARY BLADDER: Partially empty but grossly unremarkable. FREE FLUID: None. ADDITIONAL FINDINGS: None. IMPRESSION: Bilateral hydronephrosis is identified as described, right greater than left. A few shadowing renal stones are identified bilaterally but appears significantly decreased since comparison ultrasound. Signer Name: Jez Chacko Jr, MD Signed: 05/09/2019 9:58 AM Workstation Name: [id number]
[2019-05-09] MEDS ORDERED: FUROSEMIDE 20 MG/2 ML INJ ONE (10:56)
[2019-05-09] MEDS ORDERED: FUROSEMIDE 20 MG/2 ML INJ IV ONE (11:28)
--- NOTE | 2019-05-09 13:20 | Nuclear Medicine Report ---
KIDNEY IMAGING MORPHOLOGY WITH VASCULAR FLOW AND FUNCTION, SINGLE STUDY WITH LASIX HISTORY: Calculus of kidney, evaluate renal function COMPARISON: Renal ultrasound performed the same day. CT abdomen pelvis dated 02/21/2019. TECHNIQUE: Following IV administration of Tc-99m-MAG3, sequential dynamic images of the kidneys were obtained in the posterior projection for 30 minutes. Following IV administration of Lasix, additiona l images were acquired for 20 minutes. Time activity whole kidney curves were analyzed. RADIOPHARMACEUTICAL: 5.0 mCi of Tc-99m-MAG3 MEDICATION: Lasix 20 mg iv FINDINGS: The posterior flow images demonstrate homogeneous distribution of the radiotracer to the cortex of th e left kidney and inferior cortex of the right kidney. There appears to be decreased flow to the supe rior right kidney. There is retention of the radiotracer throughout the left renal calyces and superi or right renal calyces. Recent ultrasound performed the same day demonstrates mild to moderate bilate ral hydronephrosis. DIFFERENTIAL FUNCTION: Right: 36% Left: 64% RIGHT: Reby-qn-qgun activity: 26 minutes, delayed Ureter: No significantly abnormal activity. Normal caliber. Post-Lasix imaging: There is a relatively brisk response to IV Lasix with relatively normal excretory curve. LEFT: [id number] activity: 17 minutes, delayed Ureter: No significantly abnormal activity. Normal caliber. Post-Lasix imaging: There is a relatively brisk response to IV Lasix. The excretory curve appears sli ghtly blunted as compared to the right side. Additional Findings: None. IMPRESSION: Split function measures 64% left kidney and 36% right kidney. There is delayed peak activity is both kidneys as described. There is also moderate retention of the radiotracer within the proximal left co llecting system and superior right collecting system which responds to IV Lasix therapy. This suggest s no mechanical obstruction. Signer Name: Jez Chacko Jr, MD Signed: 05/09/2019 1:16 PM Workstation Name: [id number]
== END 2019-05-09 08:58 | disposition home or self-care (01) ==
LOC: US 08:57
PROVIDERS: ATTEND Urology
DX: N13.39 Other hydronephrosis (principal); N20.0 Calculus of kidney
CPT/HCPCS: 76770; 78708; A9562; J1940